=== PATIENT | female | born 1990 | race Caucasian/White ===

== ENCOUNTER 2018-01-08 15:15 | Emergency (ER) | payer MEDICAID ==
[~2018-01-08] VITALS: Ht 162.6 cm; Wt 90.9 kg
[2018-01-08] MEDS ORDERED: OXYC-530 PO (15:31)
[2018-01-08] MEDS ORDERED: IBUPROFEN 800 MG TABLET PO ONE (18:00)
[2018-01-08 18:57] VITALS: BP 138/80
== END 2018-01-08 19:01 | disposition home or self-care (01) ==
LOC: EMS 15:16
DX: G89.18 Other acute postprocedural pain (principal); Z76.0 Encounter for issue of repeat prescription; Z87.891 Personal history of nicotine dependence
CPT/HCPCS: 99282